=== PATIENT | female | born 1980 | race Caucasian/White ===

== ENCOUNTER 2016-09-20 14:37 | Emergency (ER) | payer OTHER ==
[~2016-09-20 14:37] MED LIST: ADA30 PO; AMLODIPINE BESY10 M1 PO; CLONIDINE HCL0.2 MG PO; COZ50 PO; FER300 PO; FOLIC ACID1 MG PO; FUROSEMIDE40 MG PO; ISO10 PO; LOP50 PO; LOSARTAN POTASS50 M1 PO; NIFEDIPINE30 MG PO; PHOS PO; VAL250 PO; VALPROIC ACID250 MG PO; ZESTRIL20 MG PO; [UNRECOGNIZED DRUG - OTHER] PO; [UNRECOGNIZED DRUG - OTHER] PO
[2016-09-20 15:30] LABS: BASOPHIL % 0.4 % (0-2); PLATELET COUNT 154 x10^3mcL (130-400); RED CELL DISTRIBUTION WIDTH 13.2 % (11.5-14.5)
[2016-09-20 15:44] LABS: ALBUMIN 3.5 g/dL (3.4-5.0); BILIRUBIN TOTAL 0.3 mg/dL (0.20-1.00); CARBON DIOXIDE 34.8 mmol/L (21-32); POTASSIUM SERUM 3.5 mmol/L (3.5-5.1); TOTAL PROTEIN, SERUM 7.3 g/dL (6.4-8.2)
[2016-09-20 18:30] VITALS: BP 139/89
== END 2016-09-20 18:41 | disposition home or self-care (01) ==
LOC: ED 14:37
PROVIDERS: Emergency Medicine
DX: R42 Dizziness and giddiness (principal); F99 Mental disorder, not otherwise specified; I12.9 Hypertensive chronic kidney disease with stage 1 through stage 4 chronic kidney disease, or unspecified chronic kidney disease; N18.9 Chronic kidney disease, unspecified; Z99.2 Dependence on renal dialysis
CPT/HCPCS: 83880

== ENCOUNTER 2017-01-20 06:28 | Emergency (ER) | payer OTHER ==
[2017-01-20 07:29] LABS: CALCIUM 8.5 mg/dL (8.5-10.1); CARBON DIOXIDE 30.2 mmol/L (21-32); POTASSIUM SERUM 4.6 mmol/L (3.5-5.1)
[2017-01-20 07:31] LABS: BASOPHIL % 0.4 % (0-2); PLATELET COUNT 186 x10^3mcL (130-400); RED CELL DISTRIBUTION WIDTH 14.2 % (11.5-14.5)
[2017-01-20 07:34] LABS: CREATININE SERUM 8.6 mg/dL (0.6-1.0)
[2017-01-20 09:02] VITALS: BP 102/46
== END 2017-01-20 09:27 | disposition home or self-care (01) ==
LOC: ED 06:28
PROVIDERS: Emergency Medicine Emergency Medical Services
DX: T82.848A Pain due to vascular prosthetic devices, implants and grafts, initial encounter (principal); I10 Essential (primary) hypertension; Z79.899 Other long term (current) drug therapy
CPT/HCPCS: 36415; Q0092

== ENCOUNTER 2017-02-02 07:30 | Inpatient (IN) | payer OTHER ==
[~2017-02-02] VITALS: Ht 144.8 cm; Wt 65.8 kg
--- NOTE | 2017-02-02 07:50 | NUR ---
PT C/O DIALYSIS SHUNT TO L UPPER CHEST NOT WORKING SINCE 01/31/17. PT DENIES PAIN AT SITE, DENIES DRAINAGE, DENIES FOUL ODOR. PT REPORTS SHUNT IN PLACE X2 MONTHS AND HAS DIALYSIS TX T,TH,SAT WITH LAST TX BEING ON 01/31/17 AND STS THAT TX WAS COMPLETED AFTER 5HR. PT REPORTS BEING TOLD BY [facility]IAL[facility]IS CENTER THAT SHUNT IS NOT WORKING PROPERLY AND TO GO TO ER. PT IS AAOX4, RESP EVEN AND UNLABORED, RA. DENIES SOB, DENIES CHEST PAIN. DENIES ABD PAIN, N/V/D. PT REPORTS BEING ANURIC. PT ACCOMPANIED BY
--- NOTE | 2017-02-02 07:54 | NUR ---
RADIOLOGY AT BEDSIDE FOR PCXR
--- NOTE | 2017-02-02 08:07 | NUR ---
ELECTRONICS ASSEMBLER AT BEDSIDE FOR BLOOD DRAW
[2017-02-02 08:35] LABS: BASOPHIL % 0.5 % (0-2); PLATELET COUNT 168 x10^3mcL (130-400)
--- NOTE | 2017-02-02 08:42 | NUR ---
PT IN STABLE CONDITION. RESP EVEN AND UNLABORED, RA. VS STABLE. NO C/O PAIN. NAD NOTED
[2017-02-02 08:51] LABS: RED CELL DISTRIBUTION WIDTH 14.6 % (11.5-14.5)
[2017-02-02 08:55] LABS: ALBUMIN 3.4 g/dL (3.4-5.0); BILIRUBIN TOTAL 0.4 mg/dL (0.20-1.00); CALCIUM 7.9 mg/dL (8.5-10.1); CARBON DIOXIDE 26.4 mmol/L (21-32); POTASSIUM SERUM 4.5 mmol/L (3.5-5.1); TOTAL PROTEIN, SERUM 6.9 g/dL (6.4-8.2)
[2017-02-02 09:01] LABS: CREATININE SERUM 13.1 mg/dL (0.6-1.0)
--- NOTE | 2017-02-02 09:43 | NUR ---
REPORT GIVEN TO MOHAMUD LEWIS IN [facility] FOR CONTINUITY OF CARE. PT IN STABLE CONDITION. RESP EVEN AND UNLABORED, RA. VS STABLE. NAD NOTED. PT AWAITING ADMIT ORDERS
--- NOTE | 2017-02-02 10:07 | NUR ---
HAD JASON FERGUSON RESIDENT DR JONAS ADMIT ORDERS
--- NOTE | 2017-02-02 10:10 | NUR ---
RC'D PT FROM ED VIA J CARLOS WITH NURSE AND PRESENT. CC OF MERLYN SHUNT HD OCCLUSION. PT DENIES PAIN AT THIS TIME. A/A/O/X4, SPEECH CLEAR AND APPROPRIATE. ON TELE 5 WITH SR, WNL. PALP PULSES, NO EDEMA NOTED. MERLYN SHUNT PRESENT. RESPIRATIONS EQUAL AND UNLABORED BILAT. LUNGS CTA. BS X4. ABDOMEN SOFT AND NONTENDER. PT IS ANURIC, DENIES DISCOMFORT. AMBULATORY WITH BRP. SKIN WNL. NOTED OLD SCARS ON MERLYN BY SHUNT. DENIES PAIN AT THIS TIME. RIGHT WRIST IV RUNNING NS 30MLS/HR, WNL. PT IS CALM AND COOPERATIVE. CALL LIGHT IN REACH. BED IN LOW POSITION. WILL CONTINUE TO MONITOR.
[2017-02-02 10:43] VITALS: BP 124/82
[2017-02-02 11:21] LABS: T3 TOTAL 0.73 ng/mL
[2017-02-02 11:26] LABS: CHOLESTEROL/HDL RATIO 4.6; MAGNESIUM 2.6 mg/dL (1.8-2.4)
[2017-02-02 11:53] LABS: PHOSPHOROUS 10.4 mg/dL (2.5-4.9)
[2017-02-02 11:58] LABS: FREE T4 0.81 ng/dL (0.76-1.46); FREE THYROXINE INDEX 2.1 ug/dL (1.4-4.5); T4(THYROXINE) 6.1 ug/dL (4.7-13.3)
--- NOTE | 2017-02-02 12:15 | NUR ---
PT RESTING IN BED. NO APPARENT SIGNS OF DISTRESS. RESPIRATIONS EQUAL AND UNLABORED BILAT. CALL LIGHT IN REACH. PRESENT AT BEDSIDE. WILL CONTINUE TO MONITOR.
[2017-02-02 13:45] VITALS: BP 125/87
--- NOTE | 2017-02-02 16:20 | NUR ---
PT RESTING IN BED WITH PRESENT AT BEDSIDE. NO APPARENT SIGNS OF DISTRESS. RESPIRATIONS EQUAL AND UNLABORED BILAT. ON TELE 5 WITH SR, WNL. PT HAD HD ON MERLYN WITH REMOVAL OF 2L. RIGHT WRIST IV, WNL RUNNING NS AT 30MLS/HR. EDUCATED ON USING CALL LIGHT WHEN GETTING OUT OF BED. BED IN LOW POSITION. CALL LIGHT IN REACH.
[2017-02-02 17:11] VITALS: BP 125/86
--- NOTE | 2017-02-02 20:11 | NUR ---
PT. AWAKE, ALERT, ORIENTED X4. AT BEDSIDE. BREATH SOUND CLEAR THROUGHOUT LUNG BARNETT, RESP. EVEN, UNLABORED. NO SOB NOTED. ABD. SOFT AND ROUND, BOWEL SOUNDS ACTIVE. NO ABD. PAIN OR NAUSEA. IVF NS AT 30CC/HR. NO EDEMA NOTED TO EXTREMITIES. LUE CHEST WALL MICK CATH W/ DRSG CDI. PEDAL PULSES STRONG FLORENTINO. CALL LIGHT WITHIN REACH.
[2017-02-02 21:45] VITALS: BP 101/66
--- NOTE | 2017-02-02 23:19 | NUR ---
PT. RESTING QUIETLY. SLEEPING. NO COMPLAINTS THUS FAR. CALL LIGHT REMAINS WITHIN REACH.
[2017-02-03 05:59] LABS: BASOPHIL % 0.5 % (0-2); PLATELET COUNT 162 x10^3mcL (130-400); RED CELL DISTRIBUTION WIDTH 14.2 % (11.5-14.5)
[2017-02-03 06:22] VITALS: BP 103/69
[2017-02-03 06:27] LABS: CALCIUM 8.8 mg/dL (8.5-10.1); POTASSIUM SERUM 4.4 mmol/L (3.5-5.1)
[2017-02-03 06:37] LABS: CREATININE SERUM 8.5 mg/dL (0.6-1.0)
--- NOTE | 2017-02-03 06:42 | NUR ---
PT. AWAKE, NO C/O PAIN, SLEPT THROUGH THE NIGHT. IV SITE REMAINS INTACT. CALL LIGHT WITHIN REACH. WILL ENDORSE PT. CARE TO INCOMING NURSE.
--- NOTE | 2017-02-03 07:44 | NUR ---
PT IS A+OX4, DENIES PAIN, NAUSEA, SOB, AND HEADACHE, NO RESPIRATORY DISTRESS NOTED, TELE, NSR, PULSES MODERATE AND EQUAL FLORENTINO, NO EDEMA PRESENT, LUNG SOUNDS CLEAR, BOWEL SOUNDS ACTIVE, L CW MICK CATH, CDI, ANURIC, AMBULATORY WITHOUT ASSISTANCE, SKIN INTACT, IV IN RA WITH NS @ 30 ML/HR, RBS 3.23, HGB 10.3, HCT 31, BUN 25.0, CR 8.5.
[2017-02-03 08:59] VITALS: BP 102/71
--- NOTE | 2017-02-03 09:21 | NUR ---
PT RESTING IN BED, NO RESPIRATORY DISTRESS NOTED, DENIES PAIN, NAUSEA, SOB, AND HEADACHE.
--- NOTE | 2017-02-03 10:35 | NUR ---
PT RESTING IN BED, NO RESPIRATORY DISTRESS NOTED, DENIES PAIN, NAUSEA, SOB, AND HEADACHE.
[2017-02-03 11:20] VITALS: BP 102/71
--- NOTE | 2017-02-03 11:30 | NUR ---
PT RESTING IN BED, NO RESPIRATORY DISTRESS NOTED, DENIES PAIN, NAUSEA, SOB, AND HEADACHE.
--- NOTE | 2017-02-03 12:20 | NUR ---
PT RESTING IN BED, NO RESPIRATORY DISTRESS NOTED, DENIES PAIN, NAUSEA, SOB, AND HEADACHE.
--- NOTE | 2017-02-03 13:12 | NUR ---
PT GIVEN DISCHARGE INSTRUCTIONS AND VERBALIZED UNDERSTANDING, IV REMOVED, CATHETER INTACT, GAUZE AND TAPE PLACED ON SITE, NO RESPIRATORY DISTRESS NOTED, PT DENIES PAIN, NAUSEA, SOB, AND HEADACHE.
--- NOTE | 2017-02-03 13:22 | NUR ---
PT OFF THE UNIT AMBULATING INDEPENDENTLY, WITH ALL BELONGINGS, ESCORTED BY SECURITY STRATEGIST AND FAMILY.
== END 2017-02-03 13:20 | disposition home or self-care (01) | DRG 206 ==
LOC: ED 07:30 → DU 09:22
PROVIDERS: Emergency Medicine; ADMIT Family Medicine
PROC: 5A1D00Z (ICD-10-PCS; principal; 2017-02-03)
DX: T82.868A Thrombosis due to vascular prosthetic devices, implants and grafts, initial encounter (principal); N17.0 Acute kidney failure with tubular necrosis; I12.0 Hypertensive chronic kidney disease with stage 5 chronic kidney disease or end stage renal disease; N18.6 End stage renal disease; E83.51 Hypocalcemia; E83.39 Other disorders of phosphorus metabolism; Z99.2 Dependence on renal dialysis; Z83.3 Family history of diabetes mellitus
CPT/HCPCS: 83880; 84439; J7030; Q0092

== ENCOUNTER 2019-12-18 21:51 | Emergency (ER) | payer OTHER ==
[2019-12-18 22:45] VITALS: Ht 144.8 cm
[2019-12-19 00:34] LABS: BASOPHIL % 0.3 % (0-2); PLATELET COUNT 144 x10^3mcL (130-400); RED CELL DISTRIBUTION WIDTH 14.8 % (11.5-14.5)
[2019-12-19 00:43] LABS: ALBUMIN 3.8 g/dL (3.4-5.0); BILIRUBIN TOTAL 0.5 mg/dL (0.20-1.00); CALCIUM 8.5 mg/dL (8.5-10.1); CARBON DIOXIDE 32.3 mmol/L (21-32); TOTAL PROTEIN, SERUM 7.1 g/dL (6.4-8.2)
[2019-12-19 00:46] LABS: CREATININE SERUM 9.6 mg/dL (0.6-1.0)
[2019-12-19 01:17] VITALS: BP 117/64
== END 2019-12-19 01:17 | disposition home or self-care (01) ==
LOC: ED 21:51
PROVIDERS: Emergency Medicine
DX: K21.9 Gastro-esophageal reflux disease without esophagitis (principal); I12.0 Hypertensive chronic kidney disease with stage 5 chronic kidney disease or end stage renal disease; N18.6 End stage renal disease; Z99.2 Dependence on renal dialysis
CPT/HCPCS: J1885; J2405; J2765; J3490; J7030; J7050